=== PATIENT | female | born 1945 | race Caucasian/White ===

== ENCOUNTER → 2017-03-03 | Outpatient (CLI) | payer MEDICARE, MEDICAID ==
[2017-03-03 12:00] VITALS: BP 136/79
[2017-03-03 12:30] VITALS: BP 136/79
[2017-03-03 16:53] LABS: Basophils # (auto) 0 uL; Basophils % (auto) 0.3 % (0.0-2.0); CONDITION Y; Eosinophils # (auto) 0.2 uL; Eosinophils % (auto) 3.6 % (0.0-7.0); Hematocrit 44.5 % (36.0-46.0); Hemoglobin 15.1 g/dL (12.2-16.2); Lymphocytes # (auto) 1.6 uL; Lymphocytes % (auto) 25.8 % (10.0-50.0); Mean Corpuscular Hemoglobin 30.8 pg (28.0-32.0); Mean Corpuscular Volume 90.5 fL (80.0-100.0); Mean Platelet Volume 9.1 fL (7.4-10.4); Monocytes # (auto) 0.4 uL; Monocytes % (auto) 7.2 % (0.0-12.0); Neutrophils # (auto) 3.9 uL; Neutrophils % (auto) 63.1 % (37.0-80.0); Platelet Count (auto) 253 10^3/uL (140-450); Red Cell Distribution Width 13.5 % (11.6-16.0); White Blood Cell 6.2 10^3/uL (4.4-10.8)
[2017-03-03 17:23] LABS: Albumin 3.6 g/dL (3.4-5.0); Bilirubin, Total 0.6 mg/dL (0.2-1.0); Calcium 8.9 mg/dL (8.5-10.1); Total Protein 7.3 g/dL (6.4-8.2)
[2017-03-03 18:31] LABS: Temperature: 22.8 C (20.0-25.0)
== END | disposition home or self-care (01) ==
LOC: CHF HDHVI 11:57
PROVIDERS: ATTEND Internal Medicine Cardiovascular Disease
DX: C50.919 Malignant neoplasm of unspecified site of unspecified female breast (principal); I10 Essential (primary) hypertension; E78.00 Pure hypercholesterolemia, unspecified; K74.1 Hepatic sclerosis; E11.9 Type 2 diabetes mellitus without complications; E03.9 Hypothyroidism, unspecified; D64.9 Anemia, unspecified; E83.119 Hemochromatosis, unspecified; E55.9 Vitamin D deficiency, unspecified; N39.0 Urinary tract infection, site not specified; Z85.3 Personal history of malignant neoplasm of breast
CPT/HCPCS: 36415; 80053; 80061; 82378; 82607; 82728; 82746; 83001; 83002; 83036; 83540; 83550; 84436; 84443; 84479; 85025; 86300; G0463

== ENCOUNTER → 2017-05-20 | Outpatient (CLI) | payer MEDICARE, MEDICAID ==
[2017-05-20 12:58] LABS: Basophils # (auto) 0 uL; Basophils % (auto) 0.4 % (0.0-2.0); Eosinophils # (auto) 0.1 uL; Eosinophils % (auto) 2.1 % (0.0-7.0); Hematocrit 43.5 % (36.0-46.0); Hemoglobin 14.6 g/dL (12.2-16.2); Lymphocytes # (auto) 1.4 uL; Lymphocytes % (auto) 26.1 % (10.0-50.0); Mean Corpuscular Hemoglobin 30.9 pg (28.0-32.0); Mean Corpuscular Hgb Conc. 33.6 g/dL (32.0-36.0); Mean Corpuscular Volume 91.9 fL (80.0-100.0); Mean Platelet Volume 8.4 fL (6.9-10.8); Monocytes # (auto) 0.5 uL; Monocytes % (auto) 9.4 % (0.0-12.0); Neutrophils # (auto) 3.3 uL; Nucleated Red Blood Cells % 0.1 %; Platelet Count (auto) 197 10^3/uL (140-450); Red Cell Distribution Width 12.8 % (11.8-14.3); White Blood Cell 5.3 10^3/uL (4.4-10.8)
[2017-05-20 12:59] LABS: Urine Bilirubin Negative (Negative); Urine Blood Negative /uL (Negative); Urine Color Yellow (Yellow); Urine Glucose Normal (Normal); Urine Ketone Negative (Negative); Urine Nitrite Negative (Negative); Urine Urobilinogen Normal (Negative); Urine pH 5.5 (5.0-8.0)
[2017-05-20 13:13] LABS: Albumin 3.7 g/dL (3.4-5.0); BUN/Creatinine Ratio 19.7; Bilirubin, Direct 0.1 mg/dL (0-0.2); Bilirubin, Total 0.5 mg/dL (0.2-1.0); Calcium 9.5 mg/dL (8.5-10.1); Total Protein 7.4 g/dL (6.4-8.2); Vitamin B12 1469 pg/mL (211-911)
== END | disposition home or self-care (01) ==
LOC: LAB 10:41
PROVIDERS: ATTEND Internal Medicine Cardiovascular Disease
DX: I10 Essential (primary) hypertension (principal); E78.00 Pure hypercholesterolemia, unspecified; K74.1 Hepatic sclerosis; E11.9 Type 2 diabetes mellitus without complications; E03.9 Hypothyroidism, unspecified; E55.9 Vitamin D deficiency, unspecified; N39.0 Urinary tract infection, site not specified; C50.919 Malignant neoplasm of unspecified site of unspecified female breast; D64.9 Anemia, unspecified
CPT/HCPCS: 36415; 80048; 80061; 80076; 81003; 82306; 82378; 82607; 82728; 82746; 83036; 83540; 83550; 84436; 84439; 84443; 84479; 84480; 85025; 86300

== ENCOUNTER → 2017-07-08 | Outpatient (CLI) | payer MEDICARE, MEDICAID ==
[2017-07-08 15:00] VITALS: BP 150/88
[2017-07-08 16:31] LABS: Basophils # (auto) 0 uL; Basophils % (auto) 0.5 % (0.0-2.0); Eosinophils # (auto) 0.1 uL; Eosinophils % (auto) 1.4 % (0.0-7.0); Hematocrit 46.6 % (36.0-46.0); Hemoglobin 15.7 g/dL (12.2-16.2); Lymphocytes # (auto) 1.7 uL; Lymphocytes % (auto) 28.3 % (10.0-50.0); Mean Corpuscular Hemoglobin 30.8 pg (28.0-32.0); Mean Corpuscular Hgb Conc. 33.7 g/dL (32.0-36.0); Mean Corpuscular Volume 91.4 fL (80.0-100.0); Mean Platelet Volume 8.6 fL (6.9-10.8); Monocytes # (auto) 0.6 uL; Monocytes % (auto) 10.1 % (0.0-12.0); Neutrophils # (auto) 3.5 uL; Neutrophils % (auto) 59.7 % (37.0-80.0); Platelet Count (auto) 218 10^3/uL (140-450); Red Cell Distribution Width 13.4 % (11.8-14.3); White Blood Cell 5.9 10^3/uL (4.4-10.8)
[2017-07-08 16:49] LABS: INR 0.95 (0.9-1.15); Partial Thromboplastin Time 25.7 sec (22.64-33.71); Prothrombin Time 10.3 sec (9.37-12.3)
== END | disposition home or self-care (01) ==
LOC: LAB 14:55
PROVIDERS: ATTEND Internal Medicine Cardiovascular Disease
DX: D64.9 Anemia, unspecified (principal); E03.9 Hypothyroidism, unspecified; R70.0 Elevated erythrocyte sedimentation rate; R79.1 Abnormal coagulation profile; C50.919 Malignant neoplasm of unspecified site of unspecified female breast
CPT/HCPCS: 36415; 84439; 84480; 85025; 85610; 85652; 85730; G0463

== ENCOUNTER → 2017-09-07 | Outpatient (CLI) | payer MEDICARE, MEDICAID ==
[2017-09-07 16:20] LABS: Basophils # (auto) 0 uL; Basophils % (auto) 0.4 % (0.0-2.0); Eosinophils # (auto) 0.1 uL; Eosinophils % (auto) 0.8 % (0.0-7.0); Hematocrit 48.7 % (36.0-46.0); Hemoglobin 16.2 g/dL (12.2-16.2); Lymphocytes # (auto) 1.6 uL; Lymphocytes % (auto) 21.4 % (10.0-50.0); Mean Corpuscular Hemoglobin 30.8 pg (28.0-32.0); Mean Corpuscular Hgb Conc. 33.3 g/dL (32.0-36.0); Mean Corpuscular Volume 92.4 fL (80.0-100.0); Monocytes # (auto) 0.6 uL; Monocytes % (auto) 8.1 % (0.0-12.0); Neutrophils # (auto) 5.2 uL; Neutrophils % (auto) 69.3 % (37.0-80.0); Nucleated Red Blood Cells % 0.3 %; Platelet Count (auto) 238 10^3/uL (140-450); Red Blood Cells 5.27 10^6/uL (4.0-5.20); Red Cell Distribution Width 14.2 % (11.8-14.3); White Blood Cell 7.5 10^3/uL (4.4-10.8)
[2017-09-07 16:27] LABS: Urine Blood Negative /uL (Negative); Urine Specific Gravity 1.026 (1.001-1.035)
[2017-09-07 16:35] LABS: Potassium 3.9 mmol/L (3.5-5.1)
[2017-09-07 16:36] LABS: BUN/Creatinine Ratio 13.2; Bilirubin, Direct 0.2 mg/dL (0-0.2); Bilirubin, Total 0.9 mg/dL (0.2-1.0); Calcium 9.6 mg/dL (8.5-10.1); Total Protein 8.2 g/dL (6.4-8.2)
[2017-09-07 16:38] LABS: % Iron Saturation 47.5 % (15-50)
[2017-09-07 16:39] LABS: Ferritin 39.1 ng/mL (10-322)
[2017-09-07 16:40] LABS: Carcinoembryonic Antigen 1.31 ng/mL (<5.0 OR =)
== END | disposition home or self-care (01) ==
LOC: LAB 13:06
PROVIDERS: ATTEND Internal Medicine Cardiovascular Disease
DX: E78.00 Pure hypercholesterolemia, unspecified (principal); I11.0 Hypertensive heart disease with heart failure; I50.9 Heart failure, unspecified; D64.9 Anemia, unspecified; R97.0 Elevated carcinoembryonic antigen [CEA]; E61.1 Iron deficiency; D05.90 Unspecified type of carcinoma in situ of unspecified breast; E11.9 Type 2 diabetes mellitus without complications; E03.9 Hypothyroidism, unspecified; E55.9 Vitamin D deficiency, unspecified; K74.1 Hepatic sclerosis; N39.0 Urinary tract infection, site not specified; R79.89 Other specified abnormal findings of blood chemistry; Z85.3 Personal history of malignant neoplasm of breast
CPT/HCPCS: 36415; 80048; 80061; 80076; 81003; 82306; 82378; 82728; 83036; 83540; 83550; 84443; 85025; 86300

== ENCOUNTER → 2017-09-15 | Outpatient (CLI) | payer MEDICARE, MEDICAID ==
[2017-09-15 14:30] VITALS: BP 147/81
[2017-09-15 17:03] LABS: Basophils # (auto) 0 uL; Basophils % (auto) 0.6 % (0.0-2.0); Eosinophils # (auto) 0.1 uL; Eosinophils % (auto) 0.8 % (0.0-7.0); Hematocrit 47.8 % (36.0-46.0); Hemoglobin 16.2 g/dL (12.2-16.2); Lymphocytes # (auto) 1.6 uL; Mean Corpuscular Hemoglobin 31.2 pg (28.0-32.0); Mean Corpuscular Hgb Conc. 33.9 g/dL (32.0-36.0); Mean Corpuscular Volume 92.1 fL (80.0-100.0); Monocytes # (auto) 0.5 uL; Monocytes % (auto) 6.4 % (0.0-12.0); Neutrophils # (auto) 5.3 uL; Neutrophils % (auto) 71.2 % (37.0-80.0); Nucleated Red Blood Cells % 0.3 %; Platelet Count (auto) 244 10^3/uL (140-450); Red Blood Cells 5.19 10^6/uL (4.0-5.20); Red Cell Distribution Width 14.4 % (11.8-14.3); White Blood Cell 7.4 10^3/uL (4.4-10.8)
== END | disposition home or self-care (01) ==
LOC: LAB 13:44
PROVIDERS: ATTEND Internal Medicine Cardiovascular Disease
DX: D64.9 Anemia, unspecified (principal); E03.9 Hypothyroidism, unspecified
CPT/HCPCS: 36415; 84443; 85025

== ENCOUNTER → 2017-09-23 | Outpatient (CLI) | payer MEDICARE, MEDICAID ==
[2017-09-23 14:10] VITALS: BP 145/89
[2017-09-23 15:20] VITALS: BP 146/82
== END | disposition home or self-care (01) ==
LOC: CHF HDHVI 14:03
PROVIDERS: ATTEND Internal Medicine Cardiovascular Disease
DX: E83.118 Other hemochromatosis (principal)
CPT/HCPCS: G0463

== ENCOUNTER → 2017-10-06 | Outpatient (CLI) | payer MEDICARE, MEDICAID ==
[~2017-10-06] MED LIST: CYANOCOBALAMIN (B-12) 1000 MCG/1 ML VIAL IM ONE; CYANOCOBALAMIN (B-12) 1000 MCG/1 ML VIAL ONE; SODIUM CHLORIDE 0.9% 100 ML IV ONE
[2017-10-06 14:45] VITALS: BP 140/77
== END | disposition home or self-care (01) ==
LOC: CHF HDHVI 12:55
PROVIDERS: ATTEND Internal Medicine Cardiovascular Disease
DX: E83.119 Hemochromatosis, unspecified (principal); I50.9 Heart failure, unspecified
CPT/HCPCS: 96361; 96372; 96374; G0463; J3420

== ENCOUNTER → 2017-11-18 | Outpatient (CLI) | payer MEDICARE, MEDICAID ==
[2017-11-18 13:20] VITALS: BP 152/88
[2017-11-18 13:50] VITALS: BP 150/88
[2017-11-18 16:16] LABS: Basophils # (auto) 0 uL; Basophils % (auto) 0.3 % (0.0-2.0); Eosinophils # (auto) 0.1 uL; Hemoglobin 15.6 g/dL (12.2-16.2); Lymphocytes # (auto) 1.5 uL; Lymphocytes % (auto) 23.3 % (10.0-50.0); Mean Corpuscular Hgb Conc. 33.9 g/dL (32.0-36.0); Mean Corpuscular Volume 94.5 fL (80.0-100.0); Monocytes # (auto) 0.5 uL; Monocytes % (auto) 7.9 % (0.0-12.0); Neutrophils # (auto) 4.2 uL; Neutrophils % (auto) 67.5 % (37.0-80.0); Nucleated Red Blood Cells % 0.2 %; Platelet Count (auto) 220 10^3/uL (140-450); Red Blood Cells 4.87 10^6/uL (4.0-5.20); White Blood Cell 6.3 10^3/uL (4.4-10.8)
[2017-11-18 16:27] LABS: % Iron Saturation 42.4 % (15-50); Albumin 3.9 g/dL (3.4-5.0); BUN/Creatinine Ratio 15.5; Bilirubin, Total 0.7 mg/dL (0.2-1.0); Calcium 9.5 mg/dL (8.5-10.1); Total Protein 7.5 g/dL (6.4-8.2)
[2017-11-18 16:28] LABS: Free T4 (Free Thyroxine) 2.03 ng/dL (0.89-1.76); T3 Total 0.94 ng/mL (0.60-1.81)
== END | disposition home or self-care (01) ==
LOC: CHF HDHVI 13:16
PROVIDERS: ATTEND Internal Medicine Cardiovascular Disease
DX: R74.8 Abnormal levels of other serum enzymes (principal); E61.1 Iron deficiency; R97.1 Elevated cancer antigen 125 [CA 125]; I10 Essential (primary) hypertension; E11.9 Type 2 diabetes mellitus without complications; E78.00 Pure hypercholesterolemia, unspecified; Z85.3 Personal history of malignant neoplasm of breast
CPT/HCPCS: 36415; 80053; 80061; 82150; 82728; 82962; 83036; 83540; 83550; 83690; 84439; 84443; 84480; 85025; 86300; G0463

== ENCOUNTER → 2018-01-06 | Outpatient (CLI) | payer MEDICARE, MEDICAID ==
[2018-01-06 12:18] VITALS: BP 130/83
== END | disposition home or self-care (01) ==
LOC: CHF HDHVI 12:20
PROVIDERS: ATTEND Internal Medicine Cardiovascular Disease
DX: E11.9 Type 2 diabetes mellitus without complications (principal); E83.119 Hemochromatosis, unspecified; I10 Essential (primary) hypertension; E78.00 Pure hypercholesterolemia, unspecified; Z85.3 Personal history of malignant neoplasm of breast
CPT/HCPCS: G0463

== ENCOUNTER → 2018-01-27 | Outpatient (CLI) | payer MEDICARE, MEDICAID ==
[2018-01-27 12:05] VITALS: BP 158/81
[2018-01-27 13:00] VITALS: BP 164/89
[2018-01-27 16:07] LABS: Basophils # (auto) 0 uL; Basophils % (auto) 0.4 % (0.0-2.0); Eosinophils # (auto) 0.1 uL; Hematocrit 46.4 % (36.0-46.0); Hemoglobin 15.6 g/dL (12.2-16.2); Lymphocytes # (auto) 1.6 uL; Lymphocytes % (auto) 26.9 % (10.0-50.0); Mean Corpuscular Hemoglobin 31.1 pg (28.0-32.0); Mean Corpuscular Hgb Conc. 33.7 g/dL (32.0-36.0); Mean Corpuscular Volume 92.3 fL (80.0-100.0); Monocytes # (auto) 0.5 uL; Neutrophils # (auto) 3.8 uL; Neutrophils % (auto) 62.7 % (37.0-80.0); Nucleated Red Blood Cells % 0.1 %; Platelet Count (auto) 201 10^3/uL (140-450); Red Blood Cells 5.03 10^6/uL (4.0-5.20)
[2018-01-27 16:17] LABS: Carcinoembryonic Antigen 0.96 ng/mL (<5.0 OR =); Ferritin 25.7 ng/mL (10-322)
[2018-01-27 16:18] LABS: Albumin 3.9 g/dL (3.4-5.0); BUN/Creatinine Ratio 20.5; Bilirubin, Total 0.8 mg/dL (0.2-1.0); Calcium 9.1 mg/dL (8.5-10.1); Potassium 4.1 mmol/L (3.5-5.1); Total Protein 7.1 g/dL (6.4-8.2)
[2018-01-27 16:40] LABS: % Iron Saturation 33.6 % (15-50)
[2018-01-28 09:34] LABS: Folate (Folic Acid) > 24.00 ng/mL (5.38-24)
== END | disposition home or self-care (01) ==
LOC: CHF HDHVI 12:08
PROVIDERS: ATTEND Internal Medicine Cardiovascular Disease
DX: C50.919 Malignant neoplasm of unspecified site of unspecified female breast (principal); I11.0 Hypertensive heart disease with heart failure; I50.9 Heart failure, unspecified; E11.9 Type 2 diabetes mellitus without complications; E78.5 Hyperlipidemia, unspecified; R53.1 Weakness; D64.9 Anemia, unspecified; E78.00 Pure hypercholesterolemia, unspecified; E03.9 Hypothyroidism, unspecified
CPT/HCPCS: 36415; 80053; 80061; 82378; 82607; 82728; 82746; 82962; 83036; 83540; 83550; 84443; 85025; 86300; G0463

== ENCOUNTER → 2018-03-10 | Outpatient (CLI) | payer MEDICARE, MEDICAID ==
[2018-03-10 13:35] VITALS: BP 133/78
[2018-03-10 14:01] VITALS: BP 130/84
== END | disposition home or self-care (01) ==
LOC: CHF HDHVI 13:37
PROVIDERS: ATTEND Internal Medicine Cardiovascular Disease
DX: C50.919 Malignant neoplasm of unspecified site of unspecified female breast (principal); E11.9 Type 2 diabetes mellitus without complications; I11.0 Hypertensive heart disease with heart failure; I50.9 Heart failure, unspecified; R94.4 Abnormal results of kidney function studies; E03.9 Hypothyroidism, unspecified; E78.00 Pure hypercholesterolemia, unspecified
CPT/HCPCS: 36415; 82565; 84520; G0463

== ENCOUNTER → 2018-03-28 | Outpatient (CLI) | payer MEDICARE, MEDICAID ==
[~2018-03-28] VITALS: Ht 30.5 cm; Wt 0.5 kg
[~2018-03-28] MED LIST changes: -SODIUM CHLORIDE 0.9% 100 ML IV ONE
[2018-03-28 11:00] VITALS: BP 150/94
[2018-03-28 11:40] VITALS: BP 150/94
[2018-03-28 16:22] LABS: Carcinoembryonic Antigen 1.19 ng/mL (<5.0 OR =); Ferritin 25.9 ng/mL (10-322)
[2018-03-28 16:23] LABS: Folate (Folic Acid) > 24.00 ng/mL (5.38-24)
[2018-03-28 16:26] LABS: Bilirubin, Total 0.6 mg/dL (0.2-1.0); Calcium 9.3 mg/dL (8.5-10.1); Total Protein 7.9 g/dL (6.4-8.2)
[2018-03-28 16:35] LABS: INR 0.93 (0.9-1.15); Partial Thromboplastin Time 27.1 sec (23.78-33.04)
[2018-03-28 16:40] LABS: Basophils # (auto) 0 uL; Basophils % (auto) 0.3 % (0.0-2.0); Eosinophils # (auto) 0.1 uL; Eosinophils % (auto) 1.8 % (0.0-7.0); Hematocrit 48.2 % (36.0-46.0); Hemoglobin 16.3 g/dL (12.2-16.2); Lymphocytes # (auto) 1.5 uL; Lymphocytes % (auto) 25.3 % (10.0-50.0); Mean Corpuscular Hemoglobin 30.9 pg (28.0-32.0); Mean Corpuscular Hgb Conc. 33.7 g/dL (32.0-36.0); Mean Corpuscular Volume 91.7 fL (80.0-100.0); Monocytes # (auto) 0.5 uL; Neutrophils # (auto) 3.7 uL; Neutrophils % (auto) 63.6 % (37.0-80.0); Nucleated Red Blood Cells % 0.2 %; Platelet Count (auto) 212 10^3/uL (140-450); Red Blood Cells 5.26 10^6/uL (4.0-5.20); Red Cell Distribution Width 13.7 % (11.8-14.3); White Blood Cell 5.8 10^3/uL (4.4-10.8)
== END | disposition home or self-care (01) ==
LOC: CHF HDHVI 11:03
PROVIDERS: ATTEND Internal Medicine Cardiovascular Disease
DX: D51.9 Vitamin B12 deficiency anemia, unspecified (principal); R53.83 Other fatigue; R97.0 Elevated carcinoembryonic antigen [CEA]; R79.1 Abnormal coagulation profile; R97.8 Other abnormal tumor markers; E78.5 Hyperlipidemia, unspecified; E61.1 Iron deficiency; D52.9 Folate deficiency anemia, unspecified; E03.9 Hypothyroidism, unspecified; E11.9 Type 2 diabetes mellitus without complications; I11.0 Hypertensive heart disease with heart failure; I50.9 Heart failure, unspecified; E78.00 Pure hypercholesterolemia, unspecified
CPT/HCPCS: 36415; 80053; 80061; 82378; 82607; 82728; 82746; 83036; 83540; 83550; 84443; 85025; 85610; 85730; 86300; 96372; G0463; J3420

== ENCOUNTER → 2018-04-21 | Outpatient (CLI) | payer MEDICARE, MEDICAID ==
[~2018-04-21] MED LIST changes: +SODIUM CHLORIDE 0.9% 250 ML IV SCH
[2018-04-21 13:15] VITALS: BP 148/82
[2018-04-21 14:30] VITALS: BP 148/80
== END | disposition home or self-care (01) ==
LOC: CHF HDHVI 13:20
PROVIDERS: ATTEND Internal Medicine Cardiovascular Disease
DX: E83.119 Hemochromatosis, unspecified (principal); I11.0 Hypertensive heart disease with heart failure; I50.9 Heart failure, unspecified; E78.5 Hyperlipidemia, unspecified; E03.9 Hypothyroidism, unspecified; E78.00 Pure hypercholesterolemia, unspecified; E11.9 Type 2 diabetes mellitus without complications; D51.9 Vitamin B12 deficiency anemia, unspecified; Z85.3 Personal history of malignant neoplasm of breast
CPT/HCPCS: 96360; 96372; 99195; G0463; J3420; J7050

== ENCOUNTER → 2018-05-26 | Outpatient (CLI) | payer MEDICARE, MEDICAID ==
[2018-05-26 14:30] VITALS: BP_SYST 143; BP_SYST 161; BP_DIAS 83; BP_DIAS 94
[2018-05-26 15:10] VITALS: BP 143/83
[2018-05-26 16:14] LABS: Albumin 3.8 g/dL (3.4-5.0); Anion Gap 10 (5-15); Blood Urea Nitrogen 12 mg/dL (7-18); Calcium 9.3 mg/dL (8.5-10.1); Carbon Dioxide 22 mmol/L (21-32); Chloride 109 mmol/L (98-107); Glucose 120 mg/dL (74-106); Potassium 3.6 mmol/L (3.5-5.1); Sodium 141 mmol/L (136-145)
[2018-05-26 16:27] LABS: Alanine Aminotransferase 26 U/L (13-56); Alkaline Phosphatase 88 U/L (45-117); Aspartate Aminotransferase 17 U/L (15-37); BUN/Creatinine Ratio 15.4; Bilirubin, Total 0.7 mg/dL (0.2-1.0); GFR African American 94 mL/min; GFR Non-African American 78 mL/min
[2018-05-26 16:28] LABS: Cholesterol 265 mg/dL (< 200); HDL Cholesterol 46 mg/dL (40-59); LDL Cholesterol 195 mg/dL (< 100); Total Protein 7.6 g/dL (6.4-8.2); Triglycerides 186 mg/dL (< 150)
== END | disposition home or self-care (01) ==
LOC: CHF HDHVI 14:34
PROVIDERS: ATTEND Internal Medicine Cardiovascular Disease
DX: E03.9 Hypothyroidism, unspecified (principal); R07.9 Chest pain, unspecified; E78.5 Hyperlipidemia, unspecified; N95.1 Menopausal and female climacteric states
CPT/HCPCS: 36415; 80053; 80061; 82553; 84443; 84484

== ENCOUNTER → 2018-06-03 | Outpatient (CLI) | payer MEDICARE, MEDICAID | END | disposition home or self-care (01) | LOC: Rad HDHVI 13:57 | PROVIDERS: ATTEND Internal Medicine Cardiovascular Disease | DX: I10 Essential (primary) hypertension (principal); E11.9 Type 2 diabetes mellitus without complications; E83.119 Hemochromatosis, unspecified | CPT/HCPCS: 93306 ==

== ENCOUNTER → 2018-07-21 | Outpatient (CLI) | payer MEDICARE, MEDICAID ==
[~2018-07-21] VITALS: Ht 162.6 cm; Wt 63.5 kg
== END | disposition home or self-care (01) ==
LOC: Rad HDHVI 14:24
PROVIDERS: ATTEND Internal Medicine Cardiovascular Disease
DX: I10 Essential (primary) hypertension (principal); E11.9 Type 2 diabetes mellitus without complications; E83.119 Hemochromatosis, unspecified; I20.0 Unstable angina
CPT/HCPCS: 93017

== ENCOUNTER → 2018-09-08 | Outpatient (CLI) | payer MEDICARE, MEDICAID ==
[2018-09-08 12:59] VITALS: BP 148/90
--- NOTE | 2018-09-08 12:59 | NUR ---
CHF PT TO [facility] CLINIC FOR ORDERED LAB DRAW FOR HEMATOHIDROSIS
[2018-09-08 13:40] VITALS: BP 140/88
--- NOTE | 2018-09-08 13:40 | NUR ---
CHF Discharge Instructions See e-MAR for any mediations given with this visit. Patient education given on disease process. Patient verbalized understanding. Previous labs reviewed. Patient discharged in stable condition with after care instructions and follow up appointment.
[2018-09-08 16:15] LABS: Basophils # (auto) 0 uL; Basophils % (auto) 0.4 % (0.0-2.0); Eosinophils # (auto) 0.2 uL; Hematocrit 47.2 % (36.0-46.0); Hemoglobin 16.1 g/dL (12.2-16.2); Lymphocytes # (auto) 1.4 uL; Lymphocytes % (auto) 26.3 % (10.0-50.0); Mean Corpuscular Hgb Conc. 34.1 g/dL (32.0-36.0); Monocytes # (auto) 0.5 uL; Monocytes % (auto) 9.8 % (0.0-12.0); Neutrophils # (auto) 3.1 uL; Neutrophils % (auto) 59.5 % (37.0-80.0); Nucleated Red Blood Cells % 0.4 %; Platelet Count (auto) 219 10^3/uL (140-450); Red Blood Cells 5.19 10^6/uL (4.0-5.20); Red Cell Distribution Width 13.1 % (11.8-14.3); White Blood Cell 5.3 10^3/uL (4.4-10.8)
[2018-09-08 16:16] LABS: % Iron Saturation 41.3 % (15-50)
[2018-09-08 16:21] LABS: Albumin 3.8 g/dL (3.4-5.0); Calcium 9.2 mg/dL (8.5-10.1); Magnesium 2.3 mg/dL (1.6-2.6)
[2018-09-08 16:24] LABS: Carcinoembryonic Antigen 1.25 ng/mL (<5.0 OR =); Ferritin 50.4 ng/mL (10-322); Free T4 (Free Thyroxine) 2.24 ng/dL (0.89-1.76)
[2018-09-08 16:26] LABS: BUN/Creatinine Ratio 16.1; Bilirubin, Total 0.6 mg/dL (0.2-1.0); Folate (Folic Acid) > 24.00 ng/mL (5.38-24); Total Protein 7.4 g/dL (6.4-8.2)
== END | disposition home or self-care (01) ==
LOC: CHF HDHVI 13:06
PROVIDERS: ATTEND Internal Medicine Cardiovascular Disease
DX: E83.118 Other hemochromatosis (principal); R53.83 Other fatigue; D64.9 Anemia, unspecified; E11.9 Type 2 diabetes mellitus without complications; D52.9 Folate deficiency anemia, unspecified; Z85.3 Personal history of malignant neoplasm of breast
CPT/HCPCS: 36415; 80053; 80061; 82378; 82607; 82728; 82746; 83036; 83540; 83550; 83615; 83735; 83880; 84436; 84439; 84443; 84479; 85025; 86300; 86304; G0463

== ENCOUNTER → 2020-01-17 | Outpatient (CLI) | payer MEDICARE, MEDICAID | END | disposition home or self-care (01) | LOC: Rad HDHVI 15:01 | PROVIDERS: ATTEND Internal Medicine Cardiovascular Disease | DX: E03.9 Hypothyroidism, unspecified (principal); I10 Essential (primary) hypertension; I34.1 Nonrheumatic mitral (valve) prolapse; R07.89 Other chest pain | CPT/HCPCS: 36415; 84439; 84443; 84479; 86800; 93306 ==

== ENCOUNTER → 2020-02-09 | Outpatient (CLI) | payer MEDICARE, OTHER ==
[~2020-02-09] VITALS: Ht 163.8 cm; Wt 67.6 kg
== END | disposition home or self-care (01) ==
LOC: Rad HDHVI 10:17
PROVIDERS: ATTEND Internal Medicine Cardiovascular Disease
DX: I10 Essential (primary) hypertension (principal); E11.9 Type 2 diabetes mellitus without complications; E78.00 Pure hypercholesterolemia, unspecified; Z82.49 Family history of ischemic heart disease and other diseases of the circulatory system
CPT/HCPCS: 93017

== ENCOUNTER → 2020-03-12 | Outpatient (CLI) | payer MEDICARE, MEDICAID | END | disposition home or self-care (01) | LOC: Rad HDHVI 15:47 | PROVIDERS: ATTEND Internal Medicine | DX: R94.4 Abnormal results of kidney function studies (principal) | CPT/HCPCS: 36415; 82565 ==

== ENCOUNTER → 2020-03-13 | Outpatient (CLI) | payer MEDICARE, OTHER ==
[~2020-03-13] MED LIST changes: -CYANOCOBALAMIN (B-12) 1000 MCG/1 ML VIAL IM ONE; -CYANOCOBALAMIN (B-12) 1000 MCG/1 ML VIAL ONE; +IOHEXOL 350 MG/ML 100ML IJ ONE; -SODIUM CHLORIDE 0.9% 250 ML IV SCH
[2020-03-13 14:00] VITALS: BP 153/79
--- NOTE | 2020-03-13 14:00 | NUR ---
CLINIC PT ARRIVED TO THE CHF CLINIC WITH ORDERS FOR CT HEAD FOR HEADACHES. A/OX4, AMBULATORY. BREATHING IS EVEN AND UNLABORED.
--- NOTE | 2020-03-13 14:13 | NUR ---
IV insertion IV access obtained, via clean sterile technique by inserting 22 gauge catheter at RFA after 1 attempt(s). IV secured properly. No trauma to site. Patient tolerated procedure well. NOTE INSERTED BY ALINE LEO
--- NOTE | 2020-03-13 14:18 | NUR ---
TO CT WITH [employer], A/OX4, AMBULATORY.
--- NOTE | 2020-03-13 14:29 | NUR ---
BACK FROM CT. PT TOLERATED PROCEDURE WELL.
--- NOTE | 2020-03-13 14:34 | NUR ---
IV removal IV DC'd with sterile technique, catheter fully intact. Pressure dressing applied to site. Patient tolerated procedure well. Discharged with aftercare instructions per MD. NOTE: REMOVED BY BURT LEO
[2020-03-13 14:36] VITALS: BP 149/76
--- NOTE | 2020-03-13 14:36 | NUR ---
Discharge Instructions See e-MAR for any mediations given with this visit. Patient education given on disease process. Patient verbalized understanding. Previous labs reviewed. Patient discharged in stable condition with after care instructions and follow up appointment. PT TOLD TO INCREASE FLUIDS FOR THE NEXT 24 TO 48 HOURS. PT VERBALIZED UNDERSTANDING.
== END | disposition home or self-care (01) ==
LOC: Rad HDHVI 13:50
PROVIDERS: ATTEND Internal Medicine
DX: I67.82 Cerebral ischemia (principal); R51 Headache
CPT/HCPCS: 70470; G0463; Q9967

== ENCOUNTER → 2020-08-07 | Outpatient (CLI) | payer MEDICARE, OTHER, MEDICAID ==
[2020-08-07 15:48] LABS: Basophils # (auto) 0 10 ^3/uL (0-0.2); Basophils % (auto) 0.6 % (0.0-2.0); Eosinophils # (auto) 0.1 10 ^3/uL (0-0.8); Eosinophils % (auto) 1.5 % (0.0-7.0); Hematocrit 43.2 % (36.0-46.0); Hemoglobin 14.9 g/dL (12.2-16.2); Lymphocytes # (auto) 1.4 10 ^3/uL (0.4-5.4); Lymphocytes % (auto) 19.5 % (10.0-50.0); Mean Corpuscular Hemoglobin 31.2 pg (28.0-32.0); Mean Corpuscular Hgb Conc. 34.5 g/dL (32.0-36.0); Mean Corpuscular Volume 90.3 fL (80.0-100.0); Monocytes # (auto) 0.6 10 ^3/uL (0-1.3); Monocytes % (auto) 8.5 % (0.0-12.0); Neutrophils # (auto) 4.8 10 ^3/uL (1.6-8.6); Neutrophils % (auto) 69.9 % (37.0-80.0); Nucleated Red Blood Cells % 0.1 %; Platelet Count (auto) 248 10^3/uL (140-450); Red Blood Cells 4.78 10^6/uL (4.0-5.20); Red Cell Distribution Width 12.7 % (11.8-14.3); White Blood Cell 6.9 10^3/uL (4.4-10.8)
[2020-08-07 15:49] LABS: BUN/Creatinine Ratio 11.7; Calcium 9.3 mg/dL (8.5-10.1)
== END | disposition home or self-care (01) ==
LOC: LAB 13:18
PROVIDERS: ATTEND Internal Medicine Cardiovascular Disease
DX: I10 Essential (primary) hypertension (principal); D64.9 Anemia, unspecified
CPT/HCPCS: 36415; 80048; 85025

== ENCOUNTER → 2020-09-06 | Outpatient (CLI) | payer MEDICARE, OTHER, MEDICAID ==
[2020-09-06 11:29] LABS: Basophils # (auto) 0.1 10 ^3/uL (0-0.2); Basophils % (auto) 1.2 % (0.0-2.0); Eosinophils # (auto) 0.1 10 ^3/uL (0-0.8); Eosinophils % (auto) 2.3 % (0.0-7.0); Hematocrit 37.8 % (36.0-46.0); Hemoglobin 13.2 g/dL (12.2-16.2); Lymphocytes # (auto) 1.3 10 ^3/uL (0.4-5.4); Lymphocytes % (auto) 19.6 % (10.0-50.0); Mean Corpuscular Hemoglobin 31.3 pg (28.0-32.0); Mean Corpuscular Volume 89.5 fL (80.0-100.0); Monocytes # (auto) 0.6 10 ^3/uL (0-1.3); Monocytes % (auto) 9.9 % (0.0-12.0); Neutrophils # (auto) 4.3 10 ^3/uL (1.6-8.6); Nucleated Red Blood Cells % 0.1 %; Platelet Count (auto) 201 10^3/uL (140-450); Red Blood Cells 4.22 10^6/uL (4.0-5.20); Red Cell Distribution Width 13.8 % (11.8-14.3); White Blood Cell 6.4 10^3/uL (4.4-10.8)
[2020-09-06 11:31] LABS: Urine Blood Negative /uL (Negative); Urine Specific Gravity 1.017 (1.001-1.035)
[2020-09-06 11:37] LABS: Albumin 3.1 g/dL (3.4-5.0); Potassium 3.7 mmol/L (3.5-5.1)
[2020-09-06 11:41] LABS: BUN/Creatinine Ratio 13.3; Bilirubin, Total 0.8 mg/dL (0.2-1.0); Total Protein 7.1 g/dL (6.4-8.2)
[2020-09-06 11:45] LABS: Free T4 (Free Thyroxine) 1.68 ng/dL (0.89-1.76)
== END | disposition home or self-care (01) ==
LOC: Rad HDHVI 09:57
PROVIDERS: ATTEND Internal Medicine Cardiovascular Disease
DX: R91.8 Other nonspecific abnormal finding of lung field (principal); I70.0 Atherosclerosis of aorta; D51.3 Other dietary vitamin B12 deficiency anemia; R06.02 Shortness of breath; I10 Essential (primary) hypertension; E11.9 Type 2 diabetes mellitus without complications; E55.9 Vitamin D deficiency, unspecified; D64.9 Anemia, unspecified; R00.2 Palpitations; R53.1 Weakness; R30.0 Dysuria
CPT/HCPCS: 36415; 71046; 80053; 80061; 81003; 82306; 82607; 83036; 84439; 84443; 85025; 87086

== ENCOUNTER → 2020-09-11 | Outpatient (CLI) | payer MEDICARE, OTHER, MEDICAID | END | disposition home or self-care (01) | LOC: Rad HDHVI 14:09 | PROVIDERS: ATTEND Internal Medicine Cardiovascular Disease | DX: R06.02 Shortness of breath (principal); R07.89 Other chest pain | CPT/HCPCS: 93306 ==

== ENCOUNTER → 2020-09-30 | Outpatient (CLI) | payer MEDICARE, OTHER, MEDICAID | END | disposition home or self-care (01) | LOC: Rad HDHVI 13:31 | PROVIDERS: ATTEND Internal Medicine Cardiovascular Disease | DX: R91.8 Other nonspecific abnormal finding of lung field (principal); R06.02 Shortness of breath; I70.0 Atherosclerosis of aorta; M85.80 Other specified disorders of bone density and structure, unspecified site | CPT/HCPCS: 71046 ==

== ENCOUNTER → 2020-10-29 | Outpatient (CLI) | payer MEDICARE, OTHER, MEDICAID | END | disposition home or self-care (01) | LOC: Rad HDHVI 13:09 | PROVIDERS: ATTEND Internal Medicine | DX: R91.8 Other nonspecific abnormal finding of lung field (principal); R06.02 Shortness of breath | CPT/HCPCS: 71046 ==

== ENCOUNTER → 2021-02-07 | Outpatient (CLI) | payer MEDICARE, OTHER, MEDICAID ==
[2021-02-07 15:48] LABS: % Iron Saturation 27.4 % (15-50)
[2021-02-07 15:58] LABS: Ferritin 68.7 ng/mL (10-322); Free T4 (Free Thyroxine) 1.69 ng/dL (0.89-1.76); T3 Total 0.81 ng/mL (0.60-1.81)
== END | disposition home or self-care (01) ==
LOC: CHF HDHVI 11:06
PROVIDERS: ATTEND Internal Medicine Cardiovascular Disease
DX: E61.1 Iron deficiency (principal); E03.9 Hypothyroidism, unspecified; R79.89 Other specified abnormal findings of blood chemistry
CPT/HCPCS: 36415; 82728; 83540; 83550; 84439; 84443; 84480

== ENCOUNTER → 2021-02-12 | Outpatient (CLI) | payer MEDICARE, OTHER, MEDICAID ==
[~2021-02-12] MED LIST changes: +READI-CAT 2 (BARIUM SULF)(VANILLA SMOOTHIE) 450ML ONE
[2021-02-12 10:43] VITALS: BP 169/84
[2021-02-12 13:00] VITALS: BP 182/90
== END | disposition home or self-care (01) ==
LOC: Rad HDHVI 10:32
PROVIDERS: ATTEND Internal Medicine Cardiovascular Disease
DX: K44.9 Diaphragmatic hernia without obstruction or gangrene (principal); K57.30 Diverticulosis of large intestine without perforation or abscess without bleeding; K76.0 Fatty (change of) liver, not elsewhere classified; R94.4 Abnormal results of kidney function studies; R10.9 Unspecified abdominal pain
CPT/HCPCS: 36415; 74177; 82565; G0463; Q9967